=== PATIENT | female | born 1970 | race Caucasian/White ===

== ENCOUNTER 2020-08-25 13:01 | Emergency (ER) | payer MEDICAID ==
[~2020-08-25] VITALS: Ht 165.1 cm; Wt 66.0 kg
[~2020-08-25 13:01] MED LIST: ESCI20TA; RISP2
[2020-08-25 13:10] VITALS: BP 156/95
== END 2020-08-25 14:51 | disposition left against medical advice (07) ==
LOC: ER 13:10
DX: Z53.21 Procedure and treatment not carried out due to patient leaving prior to being seen by health care provider (principal); I10 Essential (primary) hypertension; J45.909 Unspecified asthma, uncomplicated; F31.9 Bipolar disorder, unspecified; J44.9 Chronic obstructive pulmonary disease, unspecified; Z98.51 Tubal ligation status
CPT/HCPCS: C1893

== ENCOUNTER 2024-02-25 23:00 | Emergency (ER) | payer MEDICAID ==
[~2024-02-25] VITALS: Ht 167.6 cm; Wt 66.0 kg
[2024-02-25 23:11] VITALS: O2SAT 99
[2024-02-25] MEDS ORDERED: ACETAMINOPHEN WITH CODEINE 300/30MG TABLET PO STA (23:52)
[2024-02-26] MEDS: HYDRALAZINE 20MG/ML VIAL IV ONE (00:08)
[2024-02-26 00:10] LABS: BASOPHILS % 0.9 % (0.0-2.0); EOSINOPHILS % 2.1 % (0.0-5.0); HEMATOCRIT. 43.1 % (36.0-48.0); HEMOGLOBIN. 14.8 g/dL (12.0-16.0); MEAN CORPUSCULAR HEMOGLOBIN 33.5 pg (28.0-32.0); MEAN CORPUSCULAR HGB CONC 34.2 g/dL (31.0-37.0); MEAN CORPUSCULAR VOLUME 97.8 fL (81.0-99.0); MEAN PLATELET VOLUME 9.6 fl (7.4-10.4); MONOCYTES % 6.8 % (2.0-8.0); NEUTROPHILS % 58.2 % (40.0-76.0); PLATELET 309 x1000/uL (130-400); RED BLOOD CELL COUNT 4.41 mill/uL (4.2-5.4); RED CELL DISTRIBUTION WIDTH 12.9 % (11.6-14.6); WHITE BLOOD COUNT 5.2 x1000/uL (4.5-11.0)
[2024-02-26 00:17] LABS: CARBON DIOXIDE 31 mEq/L (21-32); CHLORIDE 108 mEq/L (98-107); POTASSIUM 3.9 mEq/L (3.5-5.1); SODIUM 143 mEq/L (136-145)
[2024-02-26 00:18] LABS: CALCIUM 9.6 mg/dL (8.7-10.4)
[2024-02-26] MEDS: ACETAMINOPHEN WITH CODEINE 300/30MG TABLET PO NR (00:18)
[2024-02-26] MEDS: HYDRALAZINE HCL 50MG TABLET PO ONE (00:19)
[2024-02-26 00:23] LABS: CREATININE 0.9 mg/dL (0.6-1.0); GLUCOSE 101 mg/dL (70-105); UREA NITROGEN BLOOD 14 mg/dL (9-23)
[2024-02-26] MEDS ORDERED: PROP20TA7 MT (04:10)
[2024-02-26] MEDS ORDERED: LISI10TA26 MT (04:10)
[2024-02-26] MEDS ORDERED: AMLO5TAB88 MT (04:10)
[2024-02-26 04:49] VITALS: BP 170/89; PULSE 55; RESP 20; TEMP 37.00296; O2SAT 99
== END 2024-02-26 04:50 | disposition home or self-care (01) ==
LOC: ER 23:00
DX: I10 Essential (primary) hypertension (principal); F41.9 Anxiety disorder, unspecified; J44.9 Chronic obstructive pulmonary disease, unspecified; F31.9 Bipolar disorder, unspecified; F15.10 Other stimulant abuse, uncomplicated; F17.210 Nicotine dependence, cigarettes, uncomplicated; Z98.51 Tubal ligation status
CPT/HCPCS: 36415; 80048; 85025; 99285